=== PATIENT | male | born 1935 | race Asian ===

== ENCOUNTER 2018-06-18 13:57 | Inpatient (IN) | payer MEDICARE, MEDICAID ==
[~2018-06-18] VITALS: Ht 167.6 cm; Wt 54.9 kg
[~2018-06-18 13:57] MED LIST: ACET-2605 PO; ASPI-1169 PO; ATOR40TA PO; ATRO2DRO4 SL; CHOL100044 PO; DONE5TAB34 PO; NITR0.4T48 SL
--- NOTE | 2018-06-18 14:01 | NUR ---
BIB RA 82 YEAR OLD MALE FROM [address] C/O DIZZINESS X 3 DAYS, AND LOSS OF APPETTITE. ALERT AND OREINTED X2-3, BREATHING EVEN AND UNLABORED WITH NO DISTRESS NOTED. DENIES PAIN AT THIS TIME. SKIN WARM TO TOUCH AND INTACT. AWAITING TO BE SEEN BY .
[2018-06-18] MEDS ORDERED: ONDANSETRON HCL/PF 4 MG/2 ML VIAL ONE (14:20)
[2018-06-18 14:29] LABS: BASOPHILS % (AUTO) 0.1 % (0.0-2.0); EOSINOPHILS % (AUTO) 0.1 % (0.0-6.0); HEMATOCRIT 40 % (39-51); HEMOGLOBIN 13.9 g/dL (13.5-17.5); LYMPHOCYTES % (AUTO) 9.1 % (20.0-44.0); MEAN CORPUSCULAR HGB CONC 35 g/dl (31.0-36.0); MEAN CORPUSCULAR VOLUME 94 fL (80-96); MONOCYTES # (AUTO) 0.3 /CMM (0.1-1.30); MONOCYTES % (AUTO) 2.4 % (2.0-12.0); NEUTROPHILS # (AUTO) 9.6 /CMM (1.8-8.9); NEUTROPHILS % (AUTO) 88.3 % (43.0-81.0); PLATELET COUNT (AUTO) 220 /CMM (150-450); RED BLOOD CELL COUNT(AUTO) 4.24 MIL/uL (4.5-6.0); WHITE BLOOD COUNT (AUTO) 10.9 K/uL (4.3-11.0)
[2018-06-18] MEDS ORDERED: IV NS 0.9% 500 ML BAG IV ONE (14:30)
[2018-06-18] MEDS ORDERED: ONDANSETRON HCL/PF 4 MG/2 ML VIAL IVP ONE (14:30)
[2018-06-18 14:51] LABS: CALCIUM, SERUM 8.8 mg/dL (8.5-10.1); CARBON DIOXIDE 26 mmol/L (21-32); CHLORIDE 99 mmol/L (98-107); CREATININE 1.1 mg/dL (0.6-1.3); GLUCOSE 87 mg/dL (74-106); POTASSIUM 4.5 mmol/L (3.5-5.1); SODIUM SERUM 137 mmol/L (136-145); UREA NITROGEN, BLOOD 26 mg/dL (7-18)
[2018-06-18 15:03] LABS: ALANINE AMINOTRANSFERASE 76 U/L (12-78); ALBUMIN 4.1 g/dL (3.4-5.0); ALKALINE PHOSPHATASE 114 U/L (46-116); ASPARTATE AMINOTRANSFERASE 56 U/L (15-37); BILIRUBIN,DIRECT 0.4 mg/dL (0.0-0.2); BILIRUBIN,TOTAL 2.3 mg/dL (0.2-1.0); TOTAL PROTEIN, SERUM 8.2 g/dL (6.4-8.2)
--- NOTE | 2018-06-18 15:36 | NUR ---
INSTRUCTIONAL MATERIAL DIRECTOR AT BEDSIDE TO TAKE PATIENT TO CT SCAN
--- NOTE | 2018-06-18 16:18 | NUR ---
DR. HANCOCK CALLED , DR WAS PAGED.
--- NOTE | 2018-06-18 16:25 | NUR ---
URINE COLLECTED SENT TO LAB
--- NOTE | 2018-06-18 17:20 | NUR ---
PATIENT REMAINS STABLE WITH NO DISTRESS NOTED. DENIES ANY PAIN, WILL CONTINUE TO MONITOR
[2018-06-18 17:39] LABS: APPEARANCE,URINE Clear (CLEAR); BILIRUBIN,URINE SMALL (NEGATIVE); BLOOD, URINE Negative Ery/uL (NEGATIVE); COLOR,URINE Yellow (YELLOW); KETONES,URINE 80 (NEGATIVE); LEUKOCYTE ESTERASE ,URINE Negative (NEGATIVE); NITRITE, URINE Negative (NEGATIVE); PH,URINE 5.5 (5.0-8.0); PROTEIN,URINE Negative (NEGATIVE); UGLUCOSE Negative (NEGATIVE)
[2018-06-18 17:56] LABS: BACTERIA,URINE Rare /HPF (None Seen); RBC,URINE NONE SEEN /HPF (0-2); SQUAMOUS EPITHELIAL CELL,UR Few /HPF (None Seen); WBC,URINE NONE SEEN /HPF (0-3)
--- NOTE | 2018-06-18 18:04 | NUR ---
CALLED DR BRAGA ANSWERING SERVICE. STAKER SURVEYING DR ALMEIDA ON THE WITH DR WALLIS.
--- NOTE | 2018-06-18 18:10 | NUR ---
DR HANCOCK ANSWERING SERVICE CALLED (DR ROGER) WITH NEW ORDERS FOR PATIENT. CONTINUE HOME MEDICATIONS, IV FLUIDS LR 80ML/HR, CHEAT X-RAY IN AM, CBC,BMP,MG,PHOS IN AM.
--- NOTE | 2018-06-18 18:10 | NUR ---
DR HANCOCK CALLED WITH NEW ORDERS FOR PATIENT. CONTINUE HOME MEDICATIONS, IV FLUIDS LR 80ML/HR, CHEAT X-RAY IN AM, CBC,BMP,MG,PHOS IN AM.
--- NOTE | 2018-06-18 18:50 | NUR ---
PATIENT REMAINS STABLE WITH NO DISTRESS NOTED. AWAITING FOR BED
--- NOTE | 2018-06-18 18:50 | NUR ---
PATIENT EATING DINNER AT BED
--- NOTE | 2018-06-18 19:38 | NUR ---
PATIENT REMAINS STABLE, VSS ARE STABLE, ENDORSED TO QUITA FOR VARGHESE
--- NOTE | 2018-06-18 19:39 | NUR ---
PT IS AMBULATING AROUND AND HAS BEEN REDIRECTED BACK TO ER BED #4.
--- NOTE | 2018-06-18 19:40 | NUR ---
CALLING REPORT TO MS NURSE, PREM JAVED. WILL CALL BACK IN 5 MINS TELLO AMARO IS NOT AVAILABLE AT THIS TIME.
--- NOTE | 2018-06-18 20:10 | NUR ---
RN MS ADMITTING NOTES RECEIVED PATIENT FROM ER VIA WHEELCHAIR. DX. FAILURE TO THRIVE. PATIENT IS ALERT AND ORIENTED X1-2, VERBALLY RESPONSIVE, ABLE TO MAKE NEEDS KNOWN. ITALIAN SPEAKER BUT CAN SPEAK AND UNDERSTAND [place]. BREATHING EVEN AND UNLABORED. NO SOB NOTED. TOLERATING ROOM AIR. NO COMPLAINTS OF PAIN OR DISCOMFORT. NO SOB NOTED. IV ON RIGHT AC G#20 INTACT AND PATENT. SKIN DRY AND WARM TO TOUCH. AFEBRILE. EXPLAINED THE PROCESS OF ADMISSION. ORIENTED TO THE USE UNIT AMENITIES. SKIN CHECK RENDERED - NOTED WITH DISCOLORATION OF THE LEFT LEG, SACRAL REDNESS, AND SCRATCH ON THE LEFT LEG, OTHERWISE NO MAJOR ISSUES. SITUATED IN BED. MADE COMFORTABLE. BELONGINGS ACCOUNTED FOR. SAFETY MEASURES IN PLACE. CALL LIGHT WITHIN REACH. WILL CONTINUE TO MONITOR.
[2018-06-18 21:12] VITALS: BP 118/68
[2018-06-18] MEDS ORDERED: NITROGLYCERIN 0.4 MG/TAB BOTTLE SL PRN (21:30)
[2018-06-18] MEDS ORDERED: ATROPINE SULFATE OPHTH SOLN 15 ML BOTTLE SL PRN (21:30)
[2018-06-18] MEDS: IV LR 1000 ML 1,000 ML IV PRN (21:56)
[2018-06-18] MEDS: ATORVASTATIN 40 MG TABLET PO SCH (22:12)
--- NOTE | 2018-06-19 05:51 | NUR ---
RN MS NOTES PLACED A CALL TO [facility] FOR PATIENT'S POLST AND VACCINE STATUS (FLU AND PNA). PER OUTDOOR LANDSCAPE ARCHITECT, TO CALL BACK AFTER 7AM. WILL ENDORSE TO ONCOMING NURSE.
--- NOTE | 2018-06-19 06:31 | NUR ---
RN MS CLOSING NOTES PATIENT IN BED ASLEEP. EASILY AROUSABLE. NO ACUTE CHANGES THROUGHOUT SHIFT. BREATHING EVEN AND UNLABORED. NO SOB NOTED. TOLERATING ROOM AIR. NO COMPLAINTS OF PAIN OR DISCOMFORT. IV ON RIGHT AC#20 INTACT AND PATENT - RUNNING LR AT 80ML/HR. SKIN DRY AND WARM TO TOUCH. AFEBRILE. KEPT CLEAN DRY AND COMFORTABLE. ALL OTHER NEEDS ATTENDED TO. SAFETY MEASURES IN PLACE. CALL LIGHT WITHIN REACH. WILL ENDORSE TO ONCOMING NURSE FOR CONTINUITY OF CARE.
[2018-06-19 06:39] LABS: BASOPHILS % (AUTO) 0.3 % (0.0-2.0); EOSINOPHILS % (AUTO) 1.9 % (0.0-6.0); HEMATOCRIT 33 % (39-51); HEMOGLOBIN 11.6 g/dL (13.5-17.5); LYMPHOCYTES # (AUTO) 1.5 /CMM (0.8-4.8); LYMPHOCYTES % (AUTO) 22.8 % (20.0-44.0); MEAN CORPUSCULAR HGB CONC 35 g/dl (31.0-36.0); MEAN CORPUSCULAR VOLUME 93 fL (80-96); MONOCYTES # (AUTO) 0.5 /CMM (0.1-1.30); MONOCYTES % (AUTO) 7.4 % (2.0-12.0); NEUTROPHILS # (AUTO) 4.4 /CMM (1.8-8.9); NEUTROPHILS % (AUTO) 67.6 % (43.0-81.0); PLATELET COUNT (AUTO) 191 /CMM (150-450); RED BLOOD CELL COUNT(AUTO) 3.54 MIL/uL (4.5-6.0); WHITE BLOOD COUNT (AUTO) 6.5 K/uL (4.3-11.0)
[2018-06-19 07:02] LABS: CALCIUM, SERUM 7.2 mg/dL (8.5-10.1); CARBON DIOXIDE 25 mmol/L (21-32); CHLORIDE 104 mmol/L (98-107); GLUCOSE 85 mg/dL (74-106); MAGNESIUM 1.8 mg/dL (1.8-2.4); POTASSIUM 3.7 mmol/L (3.5-5.1); SODIUM SERUM 139 mmol/L (136-145); UREA NITROGEN, BLOOD 25 mg/dL (7-18)
--- NOTE | 2018-06-19 07:20 | NUR ---
MSRN. PT RECEIVED A&0X2, AWAKE AND RESTING IN BED. PT TOLERATING ROOM AIR WITHOUT RESP DISTRESS, DENIES PAIN RO DISCOMFORT AT THIS TIME. PT WITH IVC IN TACT AND OPERATIONAL WITH IVF PER RX. PT DENIES NEEDS AT THIS TIME. PT BRIEFED ON TODAY'S POC AND IS WITHOUT CONCERN OR COMPLAINT AT THIS TIME.
[2018-06-19 08:00] VITALS: BP 106/60
[2018-06-19] MEDS: ASPIRIN 81 MG TAB.CHEW PO SCH (09:25)
[2018-06-19] MEDS: CHOLECALCIFEROL 1,000 UNIT TABLET (VIT D3) PO SCH (09:25)
[2018-06-19] MEDS: DONEPEZIL 5 MG TABLET PO SCH (09:25)
[2018-06-19] MEDS: ENSURE ENLIVE CHOC 237 ML CAN PO SCH ×2 (13:30→17:33)
[2018-06-19] MEDS: IV LR 1000 ML 1,000 ML IV PRN (13:31)
--- NOTE | 2018-06-19 14:38 | NUR ---
MSRN. PT REMOVED IV, REPLACED R FA G20. IVF PER RX.
[2018-06-19 16:00] VITALS: BP 124/66
[2018-06-19] MEDS ORDERED: IOHEXOL-300 100 ML VIAL IV ONE (16:15)
[2018-06-19] MEDS ORDERED: IV NS 0.9% 250 ML IV ONE (16:16)
[2018-06-19] MEDS ORDERED: CT SWABBABLE VALVE TRANS SET 1 EA INFUS.SET MC ONE (16:16)
--- NOTE | 2018-06-19 16:27 | NUR ---
Patient resides at [facility] [phone]. Prior to admission, his baseline was ambulatory and independent with adl's. Has no DME or homehealth reported. Current dc plan is return to [facility] once discharge. Addendum: 06/19/18 at 1639 by POLA AGUILA RN Amended: Links added.
--- NOTE | 2018-06-19 18:27 | NUR ---
MSRN. PT REMAINS AWAKE AND RESTING IN BED. PT TOLERATING ROOM AIR WITHOUT RESP DISTRESS AND DENIES PAIN OR DISCOMFORT AT THIS TIME. PT WITH NEW IVC INTACT AND OPERATIONAL AT R FA WITH LR 80CC/HR PER RX. PT BED IN LOWEST LOCKED POSITION WITH HANDRAILSX2 AND CALL MCCLURE WITHIN REACH. ALL DAY NURSE DUTIES ATTENDED TO AND PT IS WITHOUT CONCERN OR COMPLAINT AT THIS TIME. WILL ENDORSE TO NIGHT NURSE AT BEDSIDE FOR VARGHESE.
--- NOTE | 2018-06-19 19:15 | NUR ---
RN OPENING NOTES RECEIVED PT IN BED, AWAKE, ALERT AND ORIENTED X 2, CONFUSED, VERBALLY RESPONSIVE, NO SOB NOTED, DENIES PAIN AND IS IN NO ACUTE DISTRESS. ALL PATIENT'S NEEDS ATTENDED TO AT THIS TIME. PLACED CALL LIGHT WITHIN EASY REACH. WILL CONTINUE TO MONITOR.
[2018-06-19 20:00] VITALS: BP 126/70
--- NOTE | 2018-06-19 20:35 | NUR ---
RN NOTES CALLED JESSE SEGOVIA, PER STAFF CALL IN THE AM AND LOOK FOR MIRTA FOR INFORMATION REGARDING PATIENT'S PNA VACCINATION AND POLST. JESSE SEGOVIA TEL # [phone]
[2018-06-19] MEDS: ATORVASTATIN 40 MG TABLET PO SCH (21:28)
[2018-06-20] MEDS: IV LR 1000 ML 1,000 ML IV PRN (03:56)
--- NOTE | 2018-06-20 06:25 | NUR ---
RN CLOSING NOTES PATINET IN BED, ALERT TO SELF, CONFUSED. NOTED TO BE ON NO DISTRESS, BREATHING EVEN AND UNLABORED WITH NO SOB. PT CONTINUES TO RECEIVE IVF ORDERED VIA IV PERIPHERAL LINE ON RFA G# 20, INTACT AND PATENT. ALL PATINET'S NEEDS ATTENDED TO, PLACED MICAH LLIGHT WITHIN EASY REACH, BED IN LOW POSITION AND LOCKED IN PLACE. WILL ENDORSE TO AM SHIFT NURSE FOR CONTINUITY OF CARE.
--- NOTE | 2018-06-20 07:15 | NUR ---
MSRN. PT RECEIVED SLEEPING, NIGHT RN ENDORSED PT BEING AWAKE MOST OF THE NIGHT AND CONFUSED. PT LEFT TO REST A THIS TIME.
[2018-06-20 08:08] VITALS: BP 116/73
[2018-06-20] MEDS: ENSURE ENLIVE CHOC 237 ML CAN PO SCH ×3 (08:47→17:32)
[2018-06-20] MEDS: ASPIRIN 81 MG TAB.CHEW PO SCH (09:09)
[2018-06-20] MEDS: CHOLECALCIFEROL 1,000 UNIT TABLET (VIT D3) PO SCH (09:09)
[2018-06-20] MEDS: DONEPEZIL 5 MG TABLET PO SCH (09:09)
[2018-06-20] MEDS ORDERED: PEG 3350/NA SULF,BICARB,CL/KCL 4,000 ML BOTTLE PO ONE ×2 (14:30→19:00)
[2018-06-20 16:00] VITALS: BP 126/68
--- NOTE | 2018-06-20 18:43 | NUR ---
MSRN. PT TOLERATING ROOM AIR WITHOUT RESP DISTRESS, DENIES PAIN OR DISCOMFORT AT THIS TIME. PT WITH IVC IN TACT AND OPERATIONAL WITH IVF PER RX. PT DENIES NEEDS AT THIS TIME. CONSENT FOR COLONOSCOPY FROM PT AND DTR IN CHART. ALL DAY NURSE DUTIES ATTENDED TO AND PT IS WITHOUT CONCERN OR COMPLAINT AT THIS TIME. WILL ENDORSE TO NIGHT NURSE AT BEDSIDE FOR VARGHESE.
[2018-06-20 20:00] VITALS: BP 109/58
--- NOTE | 2018-06-20 20:39 | NUR ---
MS RN NOTES PT REFUSED TO HAVE COLONOSCOPY DONE. PT REFUSED TO TAKE THE GOLYTELY TOO. PT STATES "I'M ALREADY OLD. I DON'T WANT THIS TO BE DONE TO ME." EXPLAINED TO PT IMPORTANCE OF THE TESTS IN HIS POC BUT PT STILL REFUSED. NOTIFIED DAUGHTER RE PATIENT'S REFUSAL. PT'S DAUGHTER AWARE ABOUT REFUSAL AND AGREED TO JUST CANCEL THE PROCEDURE. NOTIFIED DR DAMIAN. MD AWARE. WILL JUST CANCEL COLONOSCOPY PER MD. NOTIFIED PT AND DTR RE CANCELLATION OF PROCEDURE PER MD. WILL CONTINUE TO MONITOR.
[2018-06-20] MEDS: ATORVASTATIN 40 MG TABLET PO SCH (21:57)
--- NOTE | 2018-06-21 06:16 | NUR ---
MS RN NOTES AWAKE & RESPONSIVE. NOT IN ANY DISTRESS. NO SOB NOTED. DENIES ANY PAIN OR DISCOMFORT AT THIS TIME. WITH IV-HL PATENT & INTACT. CALL LIGHT WITHIN REACH. BED IN LOWEST POSITION. SR UP X3 WITH BED ALARM ON FOR SAFETY. WILL ENDORSE TO NEXT SHIFT.
--- NOTE | 2018-06-21 07:38 | NUR ---
MS RN OPENING NOTES RECEIVED PT LAYING IN BED, RESTING COMFORTABLY. PT IS EASILY AROUSABLE. PT IS A/O X3, AFEBRILE. RESPIRATIONS ARE EVEN AND UNLABORED, NOT IN ANY ACUTE DISTRESS NOTED. PT DENIES ANY PAIN AT THIS TIME, NO C/O SOB, N/V. NO IV ACCESS NOTED. PT PULLED OUT IV AND IS PLACED ON TABLE. NO ACTIVE BLEEDING. PT STATED "I DONT WANT ANY IV, I JUST WANT TO SLEEP." EXPLAINED THE IMPORTANCE OF RECEIVING IV FLUIDS AND PT STATED "I CAN DRINK ON MY OWN. I DONT NEED FLUIDS THROUGH MY VEINS." SAFETY MEASURES ARE IN PLACE. INSTRUCTED PT TO USE CALL LIGHT WHEN ASSISTANCE IS NEEDED, CALL LIGHT IS LEFT WITHIN REACH. WILL CONTINUE TO MONITOR THROUGHOUT SHIFT FOR CONTINUITY OF CARE.
--- NOTE | 2018-06-21 07:52 | NUR ---
MS RN NOTES-- PT IS DRESSED IN STREET CLOTHES. BRIDGE RIGGER AND RN ENCOURAGED PT TO WEAR GOWN AND GET READY FOR BREAKFAST. PT REFUSED AND STATED "I JUST WANT TO SLEEP. I DID NOT SLEEP ALL NIGHT." WILL CONTINUE TO MONITOR.
[2018-06-21 08:00] VITALS: BP 113/73
[2018-06-21] MEDS: DONEPEZIL 5 MG TABLET PO SCH (08:39)
[2018-06-21] MEDS: ASPIRIN 81 MG TAB.CHEW PO SCH (08:39)
[2018-06-21] MEDS: CHOLECALCIFEROL 1,000 UNIT TABLET (VIT D3) PO SCH (08:39)
[2018-06-21] MEDS: ENSURE ENLIVE CHOC 237 ML CAN PO SCH ×2 (08:39→12:10)
--- NOTE | 2018-06-21 10:39 | NUR ---
MS RN NOTES-- EXPLAINED TO THE PT FOR THE NEED TO INSERT NEW PERIPHERAL IV. PT REFUSED AND STATED "I DONT WANT ANOTHER ONE. ILL JUST DRINK." WILL TRY AGAIN LATER, WILL CONTINUE TO MONITOR.
--- NOTE | 2018-06-21 11:00 | NUR ---
MS JAVED NOTES-- PER TY, NO NEED TO COLLECT SPUTUM FOR [employer] ONE COLLECTION WAS DONE AT [facility] AND TWO WERE COLLECTED HERE AT [facility]. PT MADE AWARE. Addendum: 06/21/18 at 1607 by [place]STER RO RN WRONG PATIENT
--- NOTE | 2018-06-21 16:30 | NUR ---
1210PM RN WENT TO PATIENT'S ROOM TO ADMINISTER ENSURE FOR LUNCH TIME. 1225PM RN WENT TO PATIENT'S ROOM TO SEE IF PATIENT IS EATING LUNCH. INFORMED PT THAT RN WILL BE BACK TO TAKE PICTURES OF SCRATCHES TO LEFT LEG. 1240PM WENT TO PATIENT'S ROOM TO EXPLAIN DISCHARGE PAPERWORK AND PATIENT WAS NOT IN ROOM. NOTIFIED CHARGED NURSE TERENCE, NOTIFIED SECURITY JAYLENE, AND STAFF WENT LOOKING IN EACH ROOM ON 3RD FLOOR TO LOCATE PATIENT. STAFF WENT TO 2ND, 1ST FLOOR AND AROUND HOSPITAL PERIMETER TO LOCATE PATIENT AND PATIENT WAS NO WHERE TO BE FOUND. 1:15PM NOTIFIED DAUGHTER BEVERLY AND WAS MADE AWARE. PER DAUGHTER BEVERLY, PATIENT MAY BE WANTING TO GO BACK TO [facility] IN [place]. DR. ALMEIDA WAS PHYSICALLY MADE AWARE OF PATIENT LEAVING HOSPITAL. 1:30PM CALLED [employer], FAST FOOD SERVER #[id number] OF PATIENT MISSING, INCIDENT #[id number]. 2:15PM [employer] ARRIVED AND QUESTIONED RN. BLOCKED OFF PATIENT'S ROOM IN 314-1, PER [employer]. 3:45PM [employer] SHOWED WITH K-9 TO SWEEP PATIENT'S ROOM.
== END 2018-06-21 12:45 | disposition left against medical advice (07) | DRG 392 ==
LOC: ER 14:04 → MED 19:58
PROVIDERS: ADMIT Internal Medicine; ATTEND Internal Medicine
DX: R19.01 Right upper quadrant abdominal swelling, mass and lump (principal); R94.5 Abnormal results of liver function studies; R62.7 Adult failure to thrive; F02.80 Dementia in other diseases classified elsewhere, unspecified severity, without behavioral disturbance, psychotic disturbance, mood disturbance, and anxiety; G30.9 Alzheimer's disease, unspecified; I25.10 Atherosclerotic heart disease of native coronary artery without angina pectoris; D64.9 Anemia, unspecified; E78.00 Pure hypercholesterolemia, unspecified; Z90.49 Acquired absence of other specified parts of digestive tract; I10 Essential (primary) hypertension
CPT/HCPCS: 36415; 70450-TC; 71045-TC; 74178; 76705-TC; 80048-TC; 80076-TC; 81000-TC; 82378; 83605-TC; 83735-TC; 84100-TC; 84484-TC; 85025-TC; 85730-TC; 86704; 86706; 86803; 87040-TC; 87081-TC; 87086-TC; G0378; J2405; J7040; J7050; J7120; Q9967

== ENCOUNTER 2018-06-22 00:19 | Inpatient (IN) | payer MEDICARE, MEDICAID ==
[~2018-06-22] VITALS: Ht 152.4 cm; Wt 57.6 kg
--- NOTE | 2018-06-22 00:19 | NUR ---
PT TO ER BB [facility], PT FOUND [facility]RE[facility] S/P ELOPING FROM HOSPITAL. PT A/OX2, AMBULATORY UPON ARRIVAL. ABRASIONS NOTED TO BILATERAL HANDS AND FACE. PT UNABLE TO RECALL ANY FALL. PT VITAL SIGNS STABLE. BREATHS EQUAL AND UNLABORED. PT TO ER BED 6 WAITING TO BE SEEN BY .
[2018-06-22] MEDS ORDERED: TDAP [DIPH/PERTUSSIS/TET] 0.5 ML VIAL IM ONE ×2 (01:00→02:18)
[2018-06-22 01:51] LABS: BASOPHILS % (AUTO) 0.1 % (0.0-2.0); EOSINOPHILS % (AUTO) 0.1 % (0.0-6.0); HEMATOCRIT 38 % (39-51); HEMOGLOBIN 12.8 g/dL (13.5-17.5); LYMPHOCYTES # (AUTO) 1.1 /CMM (0.8-4.8); LYMPHOCYTES % (AUTO) 8.9 % (20.0-44.0); MEAN CORPUSCULAR HGB CONC 34 g/dl (31.0-36.0); MEAN CORPUSCULAR VOLUME 93 fL (80-96); MONOCYTES # (AUTO) 0.9 /CMM (0.1-1.30); MONOCYTES % (AUTO) 6.8 % (2.0-12.0); NEUTROPHILS # (AUTO) 10.5 /CMM (1.8-8.9); NEUTROPHILS % (AUTO) 84.1 % (43.0-81.0); PLATELET COUNT (AUTO) 195 /CMM (150-450); RED BLOOD CELL COUNT(AUTO) 4.03 MIL/uL (4.5-6.0); WHITE BLOOD COUNT (AUTO) 12.5 K/uL (4.3-11.0)
[2018-06-22 02:03] LABS: CALCIUM, SERUM 9.5 mg/dL (8.5-10.1); CARBON DIOXIDE 26 mmol/L (21-32); CHLORIDE 102 mmol/L (98-107); CREATININE 1.4 mg/dL (0.6-1.3); GLUCOSE 105 mg/dL (74-106); POTASSIUM 3.9 mmol/L (3.5-5.1); SODIUM SERUM 140 mmol/L (136-145); UREA NITROGEN, BLOOD 27 mg/dL (7-18)
[2018-06-22] MEDS ORDERED: IV NS 0.9% 500 ML BAG IV ONE (02:30)
--- NOTE | 2018-06-22 02:31 | NUR ---
REPORT GIVEN TO TELLO CRISOSTOMO FOR VARGHESE.
[2018-06-22 03:25] VITALS: BP 113/66
--- NOTE | 2018-06-22 03:35 | NUR ---
MS/RN NOTES RECEIVED PT. FROM ER VIA [place]. PT. IS AWAKE, ALERT AND ORIENTED TO SELF. BREATHING EVEN AND UNLABORED ON ROOM AIR. NO SOB, RESPIRATORY DISTRESS OR COMPLAINTS OF PAIN NOTED AT THIS TIME. PT. WITH LEFT AC 20 GAUGE IV SALINE LOCK PRESENT, PATENT AND INTACT. ORIENTED PT. TO ROOM. SAFETY PRECAUTIONS IMPLEMENTED AND IN PLACE. BED LOCKED AND IN LOWEST POSITION, SIDE RAILS UP X3, BED ALARM ON, WILL CONTINUE TO MONITOR.
--- NOTE | 2018-06-22 03:38 | NUR ---
PT TRANSFERED TO 3W VIA WHEELCHAIR.
--- NOTE | 2018-06-22 04:00 | NUR ---
MS/RN NOTES MS/RN NOTES CALLED DR. HANCOCK FAMILY PRACTICE PHYSICIAN SERVICE TO NOTIFY DR. ALMEIDA OF PT. ARRIVAL AND FOR ADMITTING ORDERS. PER DR. ALMEIDA NEW ORDERS: ADMIT TO MED SURG FOR DEHYDRATION, PT. IS TO BE NPO, IV LR @ 50 CC/HR. WILL CARRY OUT ORDERS. WILL CONTINUE TO MONITOR.
--- NOTE | 2018-06-22 04:23 | NUR ---
CALLED [facility] MACHINE SETUP OPERATOR [facility] SPOKE TO ROMY TO VERIFY IVF LACTATED RINGER ORDERED. WILL START IVF SOON VERIFIED BY PHARMACY.
[2018-06-22] MEDS ORDERED: IV LR 1000 ML 1,000 ML IV PRN (04:30)
--- NOTE | 2018-06-22 06:23 | NUR ---
MS/RN NOTES PT. IS LYING IN BED RESTING. BREATHING EVEN AND UNLABORED ON ROOM AIR. NO SOB, RESPIRATORY DISTRESS OR COMPLAINTS OF PAIN NOTED AT THIS TIME. PT. WITH LEFT AC 20 GAUGE PERIPHERAL IV PRESENT, PATENT AND INTACT ADMINISTERING TO PT. LR @ 50 ML/HR. SAFETY PRECAUTIONS IMPLEMENTED AND IN PLACE. ALL PT. NEEDS MET. BED LOCKED AND IN LOWEST POSITION, SIDE RAILS UP X3, BED ALARM ON, WILL ENDORSE TO DAYSHIFT NURSE FOR CONTINUITY OF CARE.
[2018-06-22 08:00] VITALS: BP 117/67
--- NOTE | 2018-06-22 08:02 | NUR ---
MS RN NOTES PATIENT RECEIVED RESTING INSIDE ROOM. SLEEPING, EASILY AROUSABLE THROUGH VERBAL AND TACTILE STIMULI. BREATHING EVEN AND UNLABORED. PATIENT ALERT AND ORIENTED WITH PERIODS OF FORGETFULNESS. DENIES ANY PAIN OR DISCOMFORT. SITTER AT BEDSIDE. WILL CONTINUE TO MONITOR. BED LOCKED AND IN LOW POSITION. BILATERAL UPPER SIDE RAILS UP AND LOCKED. CALL LIGHT WITHIN EASY REACH
--- NOTE | 2018-06-22 11:41 | NUR ---
MS RN NOTES PLACED CALL TO OFFICE OF DR. HANCOCK AND WAS TRANSFERRED TO ON-CALL PHYSICIAN, DR. ALMEIDA. FOLLOWED-UP REGARDING DIET ORDER. REVIEWED PREVIOUS ORDER DIET PRIOR TO DISCHARGE AND STATES PATIENT WAS PREVIOUSLY ON REGULAR DIET. PER DR. ALMEIDA, OK TO RESUME REGULAR DIET AND HE WILL COME AND SEE PATIENT THIS AFTERNOON. ORDER NOTED AND CARRIED OUT. PATIENT MADE AWARE AND VERBALIZED UNDERSTANDING. WILL CONTINUE TO MONITOR
[2018-06-22 15:58] VITALS: BP 105/60
--- NOTE | 2018-06-22 16:21 | NUR ---
MS RN NOTES PATIENT WITH ORDER FOR DISCHARGE FROM DR. ALMEIDA. RECEIVED CALL FROM CASE MANAGEMENT THAT PATIENT WILL BE TRANSFERRED TO [facility]. PLACED CALL TO [facility] ([phone]) AND GAVE REPORT TO DEUCE JAVED.
--- NOTE | 2018-06-22 18:08 | NUR ---
MS RN NOTES PATIENT TO DISCHARGE TODAY. DISCHARGE INSTRUCTIONS AND EDUCATION PROVIDED. ALL BELONGINGS COMPLETE ON DISCHARGE, NO REPORT OF MISSING INVENTORY. IV REMOVED WITH MINIMAL BLEEDING NOTED, PRESSURE DRESSING PLACED ON SITE. PATIENT LEFT UNIT AT 1805 VIA GURNEY IN STABLE CONDITION. BREATHING EVEN AND UNLABORED. NO SOB OR ACUTE DISTRESS. DENIES ANY PAIN OR DISCOMFORT. NO NEW SKIN BREAKDOWN NOTED. MD AWARE OF DISCHARGE
== END 2018-06-22 18:07 | DRG 433 ==
LOC: ER 00:22 → MED 02:52
PROVIDERS: ADMIT Emergency Medicine Hospice and Palliative Medicine; ATTEND Emergency Medicine Hospice and Palliative Medicine
DX: K74.60 Unspecified cirrhosis of liver (principal); K76.6 Portal hypertension; R62.7 Adult failure to thrive; F02.80 Dementia in other diseases classified elsewhere, unspecified severity, without behavioral disturbance, psychotic disturbance, mood disturbance, and anxiety; G30.9 Alzheimer's disease, unspecified; E78.5 Hyperlipidemia, unspecified; I10 Essential (primary) hypertension; I25.10 Atherosclerotic heart disease of native coronary artery without angina pectoris; S00.81XA Abrasion of other part of head, initial encounter; S60.512A Abrasion of left hand, initial encounter; S60.511A Abrasion of right hand, initial encounter; W19.XXXA Unspecified fall, initial encounter; Y92.9 Unspecified place or not applicable; Z90.49 Acquired absence of other specified parts of digestive tract; Z98.61 Coronary angioplasty status; Z79.82 Long term (current) use of aspirin; Z79.899 Other long term (current) drug therapy; Z98.890 Other specified postprocedural states; S90.812A Abrasion, left foot, initial encounter; S90.811A Abrasion, right foot, initial encounter
CPT/HCPCS: 36415; 70450-TC; 80048-TC; 85025-TC; 87081-TC; 90715; A4606; G0378; J7040; J7120; Z7610

== ENCOUNTER 2021-12-07 05:57 | Emergency (ER) | payer MEDICARE, OTHER ==
[~2021-12-07] VITALS: Ht 157.5 cm; Wt 54.4 kg
--- NOTE | 2021-12-07 06:20 | NUR ---
TO ER BED 11. BIBPA. PT FOUND ON FLOOR AT 0200. NOTED ABRASSION ON FACE AND LAC ON L HAND. PT AAOX2, DOES NOT REMEMBER WHAT HAPPENED OR WHY HE IS IN THE ED. CONNECTED TO MONITOR. NOT IN RESPIRATORY DISTRESS. AWAITING MD GUTIERREZ
--- NOTE | 2021-12-07 07:07 | NUR ---
RECEIVED PATIENT AAOX4. DIRECT MARKETING INTERN AT BEDSIDE.
[2021-12-07 07:14] LABS: BASOPHILS % (AUTO) 0.2 % (0.0-2.0); HEMATOCRIT 34 % (39-51); HEMOGLOBIN 11.9 g/dL (13.5-17.5); LYMPHOCYTES # (AUTO) 1.2 K/uL (0.8-4.8); LYMPHOCYTES % (AUTO) 27.9 % (20.0-44.0); MEAN CORPUSCULAR HGB CONC 35 g/dl (31.0-36.0); MEAN CORPUSCULAR VOLUME 91 fL (80-96); MONOCYTES # (AUTO) 0.3 K/uL (0.1-1.30); MONOCYTES % (AUTO) 6.6 % (2.0-12.0); NEUTROPHILS # (AUTO) 2.7 K/uL (1.8-8.9); NEUTROPHILS % (AUTO) 63.3 % (43.0-81.0); PLATELET COUNT (AUTO) 204 K/uL (150-450); RED BLOOD CELL COUNT(AUTO) 3.71 MIL/uL (4.5-6.0); WHITE BLOOD COUNT (AUTO) 4.3 K/uL (4.3-11.0)
[2021-12-07 07:24] LABS: CARBON DIOXIDE 31 mmol/L (21-32); CHLORIDE 106 mmol/L (98-107); CREATININE 1.1 mg/dL (0.6-1.3); GLUCOSE 90 mg/dL (74-106); SODIUM SERUM 139 mmol/L (136-145); UREA NITROGEN, BLOOD 14 mg/dL (7-18)
[2021-12-07 07:40] LABS: CALCIUM, SERUM 8.4 mg/dL (8.5-10.1)
--- NOTE | 2021-12-07 07:40 | NUR ---
PATIENT BROUGHT BACK FROM CT SCAN
--- NOTE | 2021-12-07 07:45 | NUR ---
patient resting with eyes open, patient denies any pain at this moment, denies any complaints, AAOx4 GCS 15. awaiting results
[2021-12-07] MEDS ORDERED: BACI/NEOM/POLY B OINT PKT 1 UDPKT PACKET TP ONE (09:00)
[2021-12-07] MEDS ORDERED: TDAP [DIPH/PERTUSSIS/TET] 0.5 ML VIAL IM ONE (09:00)
[2021-12-07] MEDS ORDERED: BACI/NEOM/POLY B OINT PKT 1 UDPKT PACKET ONE ×2 (09:18→09:47)
--- NOTE | 2021-12-07 09:51 | NUR ---
[facility] TRANSPORT ETA 30 MINS VIA [facility].
--- NOTE | 2021-12-07 10:40 | NUR ---
REPORT GIVEN TO VINICIO TRANSPO.
--- NOTE | 2021-12-07 10:50 | NUR ---
Patient discharged to home in stable condition. Written and verbal after care instructions given. Patient verbalizes understanding of instruction.
[2021-12-07 10:57] VITALS: BP 133/71
== END 2021-12-07 10:57 ==
LOC: ER 06:01
DX: S61.211A Laceration without foreign body of left index finger without damage to nail, initial encounter (principal); S61.213A Laceration without foreign body of left middle finger without damage to nail, initial encounter; S00.83XA Contusion of other part of head, initial encounter; I10 Essential (primary) hypertension; E78.5 Hyperlipidemia, unspecified; Z86.69 Personal history of other diseases of the nervous system and sense organs; Z90.49 Acquired absence of other specified parts of digestive tract; Z79.899 Other long term (current) drug therapy; W18.30XA Fall on same level, unspecified, initial encounter; Y93.01 Activity, walking, marching and hiking; Y92.89 Other specified places as the place of occurrence of the external cause; Y99.8 Other external cause status
CPT/HCPCS: 36415; 70450-TC; 70486-TC; 71045-TC; 72125-TC; 80048-TC; 82962-TC; 85025-TC; 90715